=== PATIENT | male | born 1965 | race African-American/Black ===

== ENCOUNTER 2017-02-22 15:52 | Emergency (ER) | payer SELFPAY ==
[~2017-02-22] VITALS: Ht 172.7 cm; Wt 80.0 kg
[~2017-02-22 15:52] MED LIST: BACT800T5 PO; CEPH500C3 PO; IBUP800T23 PO; LORA10TA PO
[2017-02-22 15:53] VITALS: BP 136/77; PULSE 96; RESP 15; TEMP 98.2; O2SAT 98
== END 2017-02-22 17:52 | disposition left against medical advice (07) ==
LOC: NED 15:52
DX: R23.8 Other skin changes (principal); Z53.21 Procedure and treatment not carried out due to patient leaving prior to being seen by health care provider
CPT/HCPCS: 99281